=== PATIENT | female | born 1985 | race Caucasian/White ===

== ENCOUNTER 2018-02-02 10:13 | Emergency (ER) | payer MEDICAID ==
[~2018-02-02] VITALS: Ht 154.9 cm; Wt 95.2 kg
[2018-02-02 10:21] VITALS: BP 118/78; Ht 154.9 cm; Wt 95.2 kg
== END 2018-02-02 10:51 | disposition home or self-care (01) ==
LOC: ED 10:13
DX: J98.01 Acute bronchospasm (principal); R06.2 Wheezing